=== PATIENT | female | born 1970 | race Caucasian/White ===

== ENCOUNTER 2017-05-23 19:50 | Emergency (ER) | payer MEDICAID ==
[2017-05-23 20:26] VITALS: O2SAT 99
[2017-05-23] MEDS ORDERED: Albuterol-Ipratrop 3 mg / 0.5 (3 ml) UD INH STA (20:28)
[2017-05-23] MEDS ORDERED: Sodium Chloride 0.9% 1,000 ML IV ONE (20:28)
[2017-05-23] MEDS ORDERED: Albuterol-Ipratrop 3 mg / 0.5 (3 ml) UD ONE (20:31)
--- NOTE | 2017-05-23 20:32 | C.PDOC ---
History Of Present Illness 46 y/o female c/o SOB for the past week. Patient notes using her nebulizer at home and feels better after using her nebulizer. Reports cough with yellowish sputum. Denies fever or chills. No chest pain, palpitations, or diaphoresis. Time Seen by Provider: 05/23/17 20:29 Chief Complaint (Nursing): Shortness Of Breath History Per: Patient History/Exam Limitations: no limitations Onset/Duration Of Symptoms: Days (past week) Current Symptoms Are (Timing): Still Present Current Respiratory Medications: Albuterol (Nebulizer) Severity: Mild Associated Symptoms: denies: Fever, Chills Recent travel outside of the [place]: No Additional History Per: Patient Past Medical History Reviewed: Historical Data, Nursing Documentation, Vital Signs Vital Signs: Last Vital Signs Temp 98.4 F 05/23/17 20:15 Pulse 81 05/23/17 20:15 Resp 16 05/23/17 20:51 BP 98/63 L 05/23/17 20:15 Pulse Ox 99 05/23/17 21:27 - Medical History PMH: Asthma, Gastritis Family History: States: Unknown Family Hx - Social History Hx Tobacco Use: No Hx Alcohol Use: No Hx Substance Use: No - Immunization History Hx Tetanus Toxoid Vaccination: No Hx Influenza Vaccination: No Hx Pneumococcal Vaccination: No Review Of Systems Except As Marked, All Systems Reviewed And Found Negative. Constitutional: Negative for: Fever, Chills, Sweats Cardiovascular: Negative for: Chest Pain, Palpitations Respiratory: Positive for: Cough (Yellowish sputum), Shortness of Breath Physical Exam - Physical Exam Appears: Non-toxic, In Acute Distress (Little distress) Skin: Warm, Dry Head: Atraumatic, Normacephalic Respiratory: No Rales, Rhonchi (Occasional ), Wheezing (Occasional ), Other ( paroxysmal cough) Gastrointestinal/Abdominal: Soft, No Tenderness Neurological/Psych: Oriented x3, Normal Speech ED Course And Treatment - Laboratory Results Result Diagrams: 05/23/17 20:50 05/23/17 20:50 O2 Sat by Pulse Oximetry: 99 (RA) Pulse Ox Interpretation: Normal - Radiology CXR: Interpreted by Me, Viewed By Me CXR Interpretation: Yes: No Acute Disease, Other (normal chest film). No: Infiltrates Medical Decision Making Medical Decision Making: Impression: * SOB for the past week. Plans: * EKG * Blood labs * CXR * Albuterol * SOLU-Medrol * IV fluids Disposition Counseled Patient/Family Regarding: Diagnosis - Disposition Referrals: [facility] [Outside] Disposition: HOME/ ROUTINE Disposition Time: 21:29 Condition: IMPROVED Prescriptions: Albuterol/Ipratropium [Duoneb 3 MG/3 Ml-0.5 MG/3 Ml 3 Ml] 3 ml IH Q6 #20 neb Azithromycin [Zithromax] 250 mg PO DAILY #7 tab Methylprednisolone [Medrol Dose Pack (21 tabs)] 4 mg PO DAILY #21 mg Instructions: Asthma (DC), Acute Bronchitis (ED) Forms: [employer] (Welsh), Gen Discharge Inst Romanian Print Language: BENGALI - POA Present On Arrival: None - Clinical Impression Clinical Impression: Bronchitis, Asthma - Scribe Statement The provider has reviewed the documentation as recorded by the Scribe Munir pimentel All medical record entries made by the Scribe were at my direction and personally dictated by me. I have reviewed the chart and agree that the record accurately reflects my personal performance of the history, physical exam, medical decision making, and the department course for this patient. I have also personally directed, reviewed, and agree with the discharge instructions and disposition.
[2017-05-23 20:53] VITALS: RESP 16
[2017-05-23 20:59] LABS: BASO # 0.1 K/uL (0.0-0.2); BASO % 0.7 % (0.0-2.0); EOS # 0.4 K/uL (0.0-0.7); EOS % 4.6 % (0.0-4.0); HEMATOCRIT 41.1 % (34.0-47.0); LYMPH # 2.2 K/uL (1.0-4.3); LYMPH % 28.6 % (20.0-40.0); MEAN CELL VOLUME 88.7 fL (81.0-99.0); MEAN CORPUSCULAR HEMOGLOBIN 30.1 pg (27.0-31.0); MONO # 0.5 K/uL (0.0-0.8); MONO % 6.1 % (0.0-10.0); RED CELL DISTRIBUTION WIDTH 12.8 % (11.5-14.5); WHITE BLOOD COUNT 7.6 K/uL (4.8-10.8)
[2017-05-23 21:05] LABS: CHLORIDE 104 mmol/L (98-107); POTASSIUM 3.8 mmol/L (3.6-5.2); SODIUM 137 mmol/L (132-148)
[2017-05-23 21:07] LABS: BILIRUBIN,TOTAL 0.4 mg/dL (0.2-1.3); GFR AFRICAN-AMERICAN > 60
[2017-05-23 21:08] LABS: ALKALINE PHOSPHATASE 68 U/L (38-126); ALT/SGPT 44 U/L (9-52); AST/SGOT 27 U/L (14-36); BLOOD UREA NITROGEN 12 mg/dL (7-17); CALCIUM 9.3 mg/dl (8.6-10.4); CARBON DIOXIDE 21 mmol/L (22-30); GLUCOSE,RANDOM 78 mg/dL (65-105); TOTAL PROTEIN 8.3 g/dL (6.3-8.3)
[2017-05-23 22:02] VITALS: BP 104/72; PULSE 83; TEMP 98.6
--- NOTE | 2017-05-24 08:37 | RAD ---
HISTORY: Shortness of breath COMPARISON: No prior. TECHNIQUE: Chest PA and lateral FINDINGS: LUNGS: No focal infiltrate or effusion. Bibasilar breast and nipple shadows. PLEURA: Minimal blunting of the bilateral costophrenic angles which may represent some pleural thickening. CARDIOVASCULAR: Normal. OSSEOUS STRUCTURES: No significant abnormalities. VISUALIZED UPPER ABDOMEN: Normal. OTHER FINDINGS: None. IMPRESSION: No active disease.
== END 2017-05-23 22:02 | disposition home or self-care (01) ==
LOC: C.ER 19:50
DX: J45.909 Unspecified asthma, uncomplicated (principal)
CPT/HCPCS: 71020; 80053; 85025; 96374; 99284; J2930; J7040

== ENCOUNTER 2018-10-03 18:01 | Emergency (ER) | payer MEDICAID ==
[2018-10-03 18:12] VITALS: BP 124/79; PULSE 70; RESP 19; TEMP 98.2; O2SAT 100
[2018-10-03] MEDS ORDERED: Amoxicillin-Clav 875-125 mg Tab PO STA (19:54)
[2018-10-03] MEDS ORDERED: Amoxicillin-Clav 875-125 mg Tab PO ONE (20:03)
--- NOTE | 2018-10-03 20:12 | C.PDOC ---
History Of Present Illness 48 y/o female comes in to ED stating she's been having constant left ear pain for the past 3 months. Patient was seen by her PMD and prescribed decongestant medication but it didnt help at all. Patient reports that now the ear is starting to drain fluid and hurts when she touches it. She denies trauma, fever, hearing loss, dizziness, or neck pain. Time Seen by Provider: 10/03/18 19:16 Chief Complaint (Nursing): ENT Problem History Per: Patient History/Exam Limitations: None Onset/Duration Of Symptoms: Days Current Symptoms Are (Timing): Still Present Past Medical History Reviewed: Historical Data, Nursing Documentation, Vital Signs Vital Signs: Last Vital Signs Temp 98.2 F 10/03/18 18:09 Pulse 70 10/03/18 18:09 Resp 19 10/03/18 18:09 BP 124/79 10/03/18 18:09 Pulse Ox 100 10/03/18 18:09 - Medical History PMH: Asthma, Gastritis Family History: States: No Known Family Hx - Social History Hx Tobacco Use: No Hx Alcohol Use: No Hx Substance Use: No - Immunization History Hx Tetanus Toxoid Vaccination: No Hx Influenza Vaccination: No Hx Pneumococcal Vaccination: No Review Of Systems Except As Marked, All Systems Reviewed And Found Negative. Constitutional: Negative for: Fever, Chills ENT: Positive for: Ear Pain (Left), Ear Discharge Musculoskeletal: Negative for: Neck Pain Neurological: Negative for: Headache, Dizziness Physical Exam - Physical Exam Appears: Non-toxic, No Acute Distress Skin: Warm, Dry Head: Atraumatic, Normacephalic Eye(s): bilateral: Normal Inspection Ear(s): Left: Other (Pain with pushing of the tragus, external canal mildly mildly edematous, TM normal) Oral Mucosa: Moist Neck: Normal ROM, Supple Cardiovascular: Rhythm Regular, No Murmur Respiratory: Normal Breath Sounds, No Rales, No Rhonchi, No Wheezing Extremity: Bilateral: Atraumatic, Normal Color And Temperature, Normal ROM Neurological/Psych: Oriented x3, Normal Speech ED Course And Treatment O2 Sat by Pulse Oximetry: 100 (RA) Pulse Ox Interpretation: Normal Medical Decision Making Medical Decision Making: Plan: --Augmentin PO --Prednisone 40 mg PO Disposition - Disposition Referrals: Roman Peters MD [Staff Provider] - Disposition: HOME/ ROUTINE Disposition Time: 20:09 Condition: GOOD Additional Instructions: Follow up with the ENT within 1-2 days. Return if worsened. Prescriptions: Amoxicillin/Clavulanate [Augmentin 875 MG-125 MG] 1 tab PO BID #14 tab Neomycin/Polymyxin/Hydrocortis [Cortisporin Otic Susp] 3 drop TOP TID #1 bottle predniSONE [Prednisone] 20 mg PO BID #10 tab Instructions: Outer Ear Infection (DC) Forms: [employer] (Tristanian) - Clinical Impression Clinical Impression: Otitis externa - PA / PRIVATE DUTY RN / Resident Statement MD/DO has reviewed & agrees with the documentation as recorded. - Scribe Statement The provider has reviewed the documentation as recorded by the Johnibidalia Corley All medical record entries made by the Johnibidalia were at my direction and pers onally dictated by me. I have reviewed the chart and agree that the record accurately reflects my personal performance of the history, physical exam, medical decision making, and the department course for this patient. I have also personally directed, reviewed, and agree with the discharge instructions and disposition.
== END 2018-10-03 20:16 | disposition home or self-care (01) ==
LOC: C.ER 18:01
DX: H60.92 Unspecified otitis externa, left ear (principal)